=== PATIENT | female | born 1990 | race Caucasian/White ===

== ENCOUNTER 2016-10-26 13:24 | Emergency (ER) | payer OTHER ==
[~2016-10-26 13:24] MED LIST: AUGMENTIN PO; BACTRIM DS TABL1 TA1 PO; BACTRIM DS TABL1 TAB PO; CIPRO PO; CIPRO500 MG/5 M PO; COLACE PO; DARVOCET-N 1001 TAB PO; DEPO-PROVE150 MG/1 M IM; DISCONTINUED MED XX; DITROPAN5 MG DOB; FLAGYL PO; HYDROCODON-ACE1 EAC1; ILOTYCIN1 GM OD; KEFLEX500 M1 PO; KEFLEX500 M2 PO; KEFLEX500 MG PO; LORTAB 5/500 TA1 TA1 PO; LORTAB 7.5-5001 TAB PO; LORTAB 7.51 TAB 7.5/ DOB; LORTAB 7.51 TAB 7.5/ PO; MACROBID 100 M100 MG PO; MACROBID100 M1 PO; NO MEDICATIONS; PHENERGAN PO; PHENERGAN25 M1 PO; PHENERGAN25 MG PO; PYRIDIUM PO; TYLENOL #3 PO; TYLENOL325 M1 PO; VICODIN 5/500 T1 TAB PO; VICODIN PO
[2016-10-26] MEDS ORDERED: NO MEDICATIONS (13:38)
[2016-10-26 14:54] LABS: URINE SOURCE CLEAN CATCH
[2016-10-26 14:55] LABS: BASOPHIL% 0.7 % (0-2.5); EOSINOPHIL% 0.7 % (0.0-7.0); HEMATOCRIT 39.1 % (35.0-45.0); HEMOGLOBIN 13.1 gm/dL (12.0-16.0); LYMPHOCYTE% 19.5 % (17.0-45.0); MEAN CORPUSCULAR HEMOGLOBIN 29.9 PG (28-34); MEAN CORPUSCULAR HGB CONC 33.6 g/dL (30-36); MEAN PLATELET VOLUME 7.2 FL (6.5-11.5); MONOCYTE# 0.6 X10e3 (0-1.0); MONOCYTE% 11.5 % (3.0-12.0); NEUTROPHIL# 3.4 X10e3 (1.5-7.1); NEUTROPHIL% 67.6 % (40-75); PLATELET COUNT 223 X10e3 (140-420); RED BLOOD COUNT 4.39 X10e (3.90-5.30)
[2016-10-26 14:57] LABS: URINE APPEARANCE SL CLOUDY; URINE BILIRUBIN NEG (NEG); URINE BLOOD 1+ (NEG); URINE COLOR YELLOW; URINE KETONE NEG (NEG); URINE LEUKOCYTE ESTERASE TRACE (NEG); URINE NITRATE NEG (NEG); URINE PROTEIN NEG (NEG); URINE UROBILINOGEN 0.2 MG/DL (NORM)
[2016-10-26 15:03] LABS: MICRO INDICATED? YES; URINE GLUCOSE 50 MG/DL (NORM)
[2016-10-26 15:04] LABS: CULTURE INDICATED? YES; URINE BACTERIA 4+ (NEG); URINE RBC 0-2 /[HPF] (0-2)
[2016-10-26 15:07] LABS: AMPHETAMINE POS (NEG); BARBITURATES NEG (NEG); BENZODIAZEPINES NEG (NEG); COCAINE NEG (NEG); MARIJUANA POS (NEG); OPIATES NEG (NEG); TRICYCLIC ANTIDEPRESSANTS NEG (NEG); U METHADONE NEG (NEG)
[2016-10-26 15:09] LABS: DIFF IND NO
[2016-10-26 15:28] LABS: ALBUMIN SERUM 3.8 g/dL (3.5-5.0); BILIRUBIN, DIRECT 0.1 mg/dL (0.0-0.2); BILIRUBIN,INDIRECT 0.2 mg/dL (0.0-0.9); BILIRUBIN,TOTAL 0.3 mg/dL (0.2-2.0); BUN/CREATININE RATIO 18.33; CALCIUM SERUM 8.3 mg/dL (8.4-10.2); CREATININE SERUM 0.6 mg/dL (0.6-1.4); GLOM FILT RATE Estimated 126.7 mL/min (>60); POTASSIUM 3.5 mmol/L (3.5-5.1); PROTEIN TOTAL SERUM 7.2 g/dL (6.0-8.3)
== END 2016-10-26 16:35 | disposition home or self-care (01) ==
LOC: SED 13:24
PROVIDERS: Emergency Medicine
DX: N30.00 Acute cystitis without hematuria (principal); Z87.442 Personal history of urinary calculi; Z88.1 Allergy status to other antibiotic agents
CPT/HCPCS: 36415; 80048; 80076; 80307; 81003; 84703; 85025; 87086; 87088; 87186; 96360; 99284; J0696

== ENCOUNTER 2017-01-18 19:09 | Emergency (ER) | payer SELFPAY ==
[~2017-01-18] VITALS: Ht 175.3 cm; Wt 59.0 kg
--- NOTE | ~2017-01-18 | EKG ---
PATIENT: FEROZ BINGHAM UNIT #: [id number] Ventricular Rate: 90 BPM Atrial Rate: 90 BPM P-R Interval: 124 ms QRS Duration: 88 ms Q-T Interval: 350 ms QTC Calculation(Bezet): 428 ms P [place]: 78 degrees Calculated R [place]: 89 degrees Calculated T [place]: 30 degrees Diagnosis Line: Normal sinus rhythm with sinus arrhythmia Diagnosis Line: Possible Left atrial enlargement Diagnosis Line: Borderline ECG Diagnosis Line: No previous ECGs available Diagnosis Line: Confirmed by YVONNE TIDWELL MD ([id number]) on 01/19/2017 Diagnosis Line: 7:16:55 PM INTERPRETING MD: YAW HUNT
[2017-01-18 20:39] LABS: BASOPHIL# 0.1 X10e3 (0-0.3); BASOPHIL% 0.8 % (0-2.5); EOSINOPHIL% 0.5 % (0.0-7.0); HEMOGLOBIN 13.9 gm/dL (12.0-16.0); LYMPHOCYTE% 29.3 % (17.0-45.0); MEAN CELL VOLUME 90.2 FL (83-96); MEAN CORPUSCULAR HEMOGLOBIN 29.8 PG (28-34); MEAN CORPUSCULAR HGB CONC 33.1 g/dL (30-36); MEAN PLATELET VOLUME 7.8 FL (6.5-11.5); MONOCYTE# 0.6 X10e3 (0-1.0); MONOCYTE% 8.5 % (3.0-12.0); NEUTROPHIL# 4.2 X10e3 (1.5-7.1); NEUTROPHIL% 60.9 % (40-75); PLATELET COUNT 245 X10e3 (140-420); RED BLOOD COUNT 4.65 X10e (3.90-5.30); RED CELL DISTRIBUTION WIDTH 13.9 % (11.0-15.5); WHITE BLOOD COUNT 6.8 X10e3 (4.0-10.5)
[2017-01-18 20:42] LABS: DIFF IND NO
[2017-01-18 20:49] LABS: POC - CKMB 1.8 ng/mL (0.0-7.9); POC - TROPONIN <0.05 ng/mL (<=0.05)
[2017-01-18 21:00] LABS: URINE SOURCE CLEAN CATCH
[2017-01-18 21:03] LABS: ALBUMIN SERUM 4.7 g/dL (3.5-5.0); BILIRUBIN,TOTAL 0.9 mg/dL (0.2-2.0); BUN/CREATININE RATIO 13.33; CALCIUM SERUM 9.3 mg/dL (8.4-10.2); CREATININE SERUM 0.9 mg/dL (0.6-1.4); GLOM FILT RATE Estimated 88.3 mL/min (>60); POTASSIUM 3.4 mmol/L (3.5-5.1); PROTEIN TOTAL SERUM 7.8 g/dL (6.0-8.3)
[2017-01-18 21:09] LABS: URINE APPEARANCE CLEAR; URINE BILIRUBIN NEG (NEG); URINE BLOOD NEG (NEG); URINE COLOR YELLOW; URINE GLUCOSE NEG (NEG); URINE KETONE 3+ (NEG); URINE LEUKOCYTE ESTERASE NEG (NEG); URINE NITRATE NEG (NEG); URINE PH 6.5 (5-8); URINE PROTEIN NEG (NEG); URINE SPECIFIC GRAVITY 1.023 (1.003-1.035); URINE UROBILINOGEN 0.2 MG/DL (NEG)
[2017-01-18 21:12] LABS: CULTURE INDICATED? NO
== END 2017-01-18 23:25 | disposition home or self-care (01) ==
LOC: CED 19:09 → CFTX 19:09 → CED 20:25
PROVIDERS: Emergency Medicine; Physician Assistant
DX: R11.2 Nausea with vomiting, unspecified (principal); Z88.1 Allergy status to other antibiotic agents
CPT/HCPCS: 36415; 80053; 81003; 82553; 84484; 85025; 93005; 96361; 96374; 99284; J2405